=== PATIENT | female | born 1975 | race Caucasian/White ===

== ENCOUNTER 2016-05-06 20:20 | Emergency (ER) | payer BC ==
[~2016-05-06 20:20] MED LIST: CYMBALTA30 M1 PO; ENBREL50 MG/ML SQ; FENTANYL TR50 MCG/H1 TOP; FLEXERIL10 MG PO; LEVAQUIN750 MG PO; LYRICA50 M1 PO; METHOTREXATE2.5 M2 PO; OXYCONTIN20 MG PO; PREDNISONE1 MG PO; PREDNISONE20 MG PO; REMICADE100 MG IV
[2016-05-06 21:27] LABS: BASOPHIL % 0.5 % (0-2)
[2016-05-06 21:30] LABS: PLATELET COUNT 636 x10^3mcL (130-400); RED CELL DISTRIBUTION WIDTH 18.4 % (11.5-14.5)
[2016-05-06 21:32] LABS: CARBON DIOXIDE 26.4 mmol/L (21-32); CHLORIDE SERUM 102 mmol/L (98-107); CREATININE SERUM 0.9 mg/dL (0.6-1.0); GFR1 > 60 mL/min; GLUCOSE SERUM 118 mg/dL (74-106); POTASSIUM SERUM 3.7 mmol/L (3.5-5.1); SODIUM SERUM 140 mmol/L (136-145)
[2016-05-06 21:36] LABS: ALBUMIN 3.4 g/dL (3.4-5.0); ALKALINE PHOSPHATASE 77 U/L (46-116); ALT/SGPT 21 U/L (14-59); AST/SGOT 14 U/L (15-37); BILIRUBIN TOTAL 0.4 mg/dL (0.20-1.00); MAGNESIUM 1.9 mg/dL (1.8-2.4)
[2016-05-06 21:37] LABS: TOTAL PROTEIN, SERUM 8.8 g/dL (6.4-8.2)
[2016-05-07 01:02] VITALS: BP 104/67
== END 2016-05-07 01:02 | disposition home or self-care (01) ==
LOC: ED 20:20
PROVIDERS: Emergency Medicine
DX: R53.1 Weakness (principal); M54.9 Dorsalgia, unspecified; R07.9 Chest pain, unspecified; R05 Cough; M06.9 Rheumatoid arthritis, unspecified; Z87.442 Personal history of urinary calculi; Z88.2 Allergy status to sulfonamides; Z88.8 Allergy status to other drugs, medicaments and biological substances
CPT/HCPCS: 83880; J1200; J1630; J2060; Q0092

== ENCOUNTER 2017-09-08 01:57 | Inpatient (IN) | payer OTHER ==
[~2017-09-08] VITALS: Ht 170.2 cm; Wt 125.7 kg
[2017-09-08 02:23] VITALS: Ht 170.2 cm; Wt 125.7 kg
[2017-09-08 03:01] LABS: BASOPHIL % 1.7 % (0-2); CALCIUM 8.8 mg/dL (8.5-10.1); CARBON DIOXIDE 24.7 mmol/L (21-32); CHLORIDE SERUM 100 mmol/L (98-107); GFR1 > 60 mL/min; GLUCOSE SERUM 161 mg/dL (74-106); POTASSIUM SERUM 3.8 mmol/L (3.5-5.1); SODIUM SERUM 131 mmol/L (136-145)
[2017-09-08 03:04] LABS: RED CELL DISTRIBUTION WIDTH 17.4 % (11.5-14.5)
[2017-09-08 03:05] LABS: ALKALINE PHOSPHATASE 107 U/L (46-116); ALT/SGPT 43 U/L (14-59); AST/SGOT 44 U/L (15-37); BILIRUBIN TOTAL 0.72 mg/dL (0.20-1.00); LIPASE 103 IU/L (73-393); TOTAL PROTEIN, SERUM 7.6 g/dL (6.4-8.2)
[2017-09-08 03:14] LABS: ALBUMIN 2.9 g/dL (3.4-5.0)
[2017-09-08 03:38] LABS: PLATELET COUNT 612 x10^3mcL (130-400)
[2017-09-08] MEDS ORDERED: PREDNISONE2.5 MG PO (05:09)
[2017-09-08] MEDS ORDERED: LYRICA150 M1 PO (05:10)
[2017-09-08] MEDS ORDERED: CYMBALTA30 M1 PO (05:11)
[2017-09-08] MEDS ORDERED: HUMIRA10 MG/0.1 (05:12)
[2017-09-08] MEDS ORDERED: DILAUDID4 MG PO (05:13)
[2017-09-08 12:40] VITALS: BP 119/65
[2017-09-08 18:51] VITALS: BP 115/71
[2017-09-08 21:42] VITALS: BP 122/74
[2017-09-09 05:22] VITALS: BP 110/73
[2017-09-09 06:35] LABS: CALCIUM 7.3 mg/dL (8.5-10.1); CARBON DIOXIDE 23.8 mmol/L (21-32); CHLORIDE SERUM 103 mmol/L (98-107); CREATININE SERUM 0.7 mg/dL (0.6-1.0); GFR1 > 60 mL/min; GLUCOSE SERUM 115 mg/dL (74-106); POTASSIUM SERUM 3.9 mmol/L (3.5-5.1); SODIUM SERUM 137 mmol/L (136-145)
[2017-09-09 06:44] LABS: ALBUMIN 2.2 g/dL (3.4-5.0); ALKALINE PHOSPHATASE 85 U/L (46-116); ALT/SGPT 28 U/L (14-59); AST/SGOT 28 U/L (15-37); BASOPHIL % 0.2 % (0-2); BILIRUBIN TOTAL 0.4 mg/dL (0.20-1.00); CALCIUM 7.3 mg/dL (8.5-10.1); CARBON DIOXIDE 24.9 mmol/L (21-32); CHLORIDE SERUM 103 mmol/L (98-107); CREATININE SERUM 0.7 mg/dL (0.6-1.0); GFR1 > 60 mL/min; GLUCOSE SERUM 117 mg/dL (74-106); PLATELET COUNT 382 x10^3mcL (130-400); POTASSIUM SERUM 3.5 mmol/L (3.5-5.1); SODIUM SERUM 137 mmol/L (136-145); TOTAL PROTEIN, SERUM 6.4 g/dL (6.4-8.2)
[2017-09-09 06:53] LABS: RED CELL DISTRIBUTION WIDTH 19.2 % (11.5-14.5); rbc morphology (normal/abnorm) ABNORMAL (NORMAL)
[2017-09-09 09:29] VITALS: BP 131/68
[2017-09-09 14:05] VITALS: BP 111/72
[2017-09-09 17:46] VITALS: BP 111/62
[2017-09-09 20:58] VITALS: BP 110/49
[2017-09-10 05:09] VITALS: BP 126/80
[2017-09-10 09:23] VITALS: BP 115/75
[2017-09-10 13:15] VITALS: BP 115/70
[2017-09-10 18:01] VITALS: BP 127/71
[2017-09-10 21:07] VITALS: BP 133/83
[2017-09-11 05:27] VITALS: BP 122/69
[2017-09-11 08:00] VITALS: BP 145/82
[2017-09-11 11:23] VITALS: BP 145/82
== END 2017-09-11 12:44 | disposition home or self-care (01) | DRG 872 ==
LOC: ED 01:57 → DU 05:38
PROVIDERS: Emergency Medicine; Internal Medicine Pulmonary Disease
DX: A41.9 Sepsis, unspecified organism (principal); K57.92 Diverticulitis of intestine, part unspecified, without perforation or abscess without bleeding; Z68.41 Body mass index [BMI] 40.0-44.9, adult; K52.9 Noninfective gastroenteritis and colitis, unspecified; E86.0 Dehydration; M79.7 Fibromyalgia; Z88.2 Allergy status to sulfonamides; Z88.8 Allergy status to other drugs, medicaments and biological substances; M06.9 Rheumatoid arthritis, unspecified; Z90.49 Acquired absence of other specified parts of digestive tract; G89.4 Chronic pain syndrome; E66.9 Obesity, unspecified
CPT/HCPCS: J0696; J1170; J1956; J2270; J2405; J2543; J3490; J7030; J7040; J7512

== ENCOUNTER 2018-09-12 01:43 | Observation (INO) | payer OTHER ==
[~2018-09-12] VITALS: Ht 172.7 cm; Wt 121.2 kg
[~2018-09-12 01:43] MED LIST changes: +DILAUDID4 MG PO; +HUMIRA10 MG/0.1; +LYRICA150 M1 PO; +PREDNISONE2.5 MG PO
[2018-09-12 01:48] VITALS: Ht 172.7 cm; Wt 121.2 kg
--- NOTE | 2018-09-12 02:02 | NUR ---
PT PRESENTS TO ED WITH C/O BACK PAIN X2 DAYS. PT STATES THAT SHE BENT OVER TO PICK SOMETHING UP AND FELT A PULL IN HER MID BACK. PT STATES THAT THE PAIN HAS GOTTEN PROGRESSIVELY WORSE OVER THE PAST 2 DAYS AND IT IS RADIATING TO HER LOWER BACK AND AROUND TO HER LOWER ABDOMEN. PT STATES THAT SHE HAS BEEN TAKING MOTRIN, PREDNISONE, AND OXYCODONE FOR THE PAIN. PT STATES TO TAKING ORENCIA WELL. DR LOCKHART AT BEDSIDE FOR MSE. PT AOX4, RESP EVEN AND UNLABORED, NO ACUTE DISTRESS NOTED. PT FAMILY AT BEDSIDE.
--- NOTE | 2018-09-12 02:18 | NUR ---
PT FAMILY APPROACHED NURSING STATION STATING "IS IT OKAY IF I GRAB MY SISTER, BECAUSE MY MOM HAS TO USE THE BATHROOM". INSTRUCTED FAMILY THAT I WOULD ASSIST THE PT TO THE RESTROOM AND PT DAUGHTER STATES "SHE SAID SHE WOULD ONLY BE COMFORTABLE IF MY SISTER HELPED HER". INSTRUCTED DAUGHTER THAT WE WOULD ALLOW MORE THAN ONE FAMILY MEMBER AT THIS TIME TO ASSIST PT TO USE RESTROOM THEN ONE VISITOR WOULD HAVE TO LEAVE. FAMILY VERBALIZED UNDERSTANDING. PT ASSISTED FROM GURNEY ONTO WHEELCHAIR WITH NO INCIDENCES NOTED. PT DAUGHTER STATES "HERE WE GOT IT". CONTINUED TO OFFER ASSISTANCE AND FAMILY AND PT REFUSED AT THIS TIME. . ACCOMPANIED FAMILY AND PT TO RESTROOM DOOR. WILL CONTINUE TO MONITOR.
--- NOTE | 2018-09-12 02:27 | NUR ---
ACCOMPANIED PT BACK TO ROOM VIA WHEELCHAIR FROM RESTROOM. PT ASSISTED BACK ONTO BED WITH NO INCIDENCES NOTED. FAMILY AT BEDSIDE. PT TOLERATED WELL.
[2018-09-12 02:29] LABS: CALCIUM 9.3 mg/dL (8.5-10.1); CARBON DIOXIDE 26.3 mmol/L (21-32); CHLORIDE SERUM 105 mmol/L (98-107); CREATININE SERUM 0.9 mg/dL (0.6-1.0); GFR1 > 60 mL/min; GLUCOSE SERUM 184 mg/dL (74-106); POTASSIUM SERUM 4.1 mmol/L (3.5-5.1); SODIUM SERUM 141 mmol/L (136-145)
[2018-09-12 02:34] LABS: ALKALINE PHOSPHATASE 72 U/L (46-116); ALT/SGPT 44 U/L (14-59); AST/SGOT 21 U/L (15-37); BILIRUBIN TOTAL 0.2 mg/dL (0.20-1.00); LIPASE 179 IU/L (73-393); TOTAL PROTEIN, SERUM 7.7 g/dL (6.4-8.2)
--- NOTE | 2018-09-12 02:45 | NUR ---
PT OFF FLOOR FOR CT.
[2018-09-12 02:55] LABS: RED CELL DISTRIBUTION WIDTH 19.2 % (11.5-14.5)
[2018-09-12 02:58] LABS: PLATELET COUNT 534 x10^3mcL (130-400)
--- NOTE | 2018-09-12 03:11 | NUR ---
PT MEDICATED PER EMAR, PT STILL COMPLAINING OF BEING "UNCOMFORTABLE". PT DAUGHTER AT BEDSIDE, ON FULL CM. AOX4, RESP EVEN AND UNLABORED, NO ACUTE DISTRESS NOTED.
[2018-09-12 03:13] LABS: microscopic required? NO
[2018-09-12 03:26] LABS: urine erythrocyte NEGATIVE (NEGATIVE)
--- NOTE | 2018-09-12 03:46 | NUR ---
PT CALLED NURSING STATION ASKING FOR NURSE. UPON ENTERING THE ROOM PT DAUGHTER STATES "TELL HER" PT RESPONDED WITH "TELL WHO WHAT". PT DAUGHTER STATES "YOURE THE ONE WHO CALLED HER, SHE SAID THE MEDICINE ISNT HELPING AND SHES STILL IN PAIN". DR LOCKHART AND MARYJANE NUNES MADE AWARE.
--- NOTE | 2018-09-12 04:25 | NUR ---
PT REFUSED NASAL KETAMINE, DR LOCKHART AWARE. PT REQUESTING OXYCODONE AT THIS TIME. DR LOCKHART AWARE.
[2018-09-12] MEDS ORDERED: OXYCODONE HYDRO30 MG PO (04:28)
--- NOTE | 2018-09-12 05:06 | NUR ---
PT REQUESTING SPRITE. PER DR LOCKHART OK FOR PT TO DRINK AT THIS TIME.
--- NOTE | 2018-09-12 05:24 | NUR ---
ATTEMPTED TO CALL PT REPORT, LIZZ NUNES UNABLE TO ACCEPT REPORT AT THIS TIME.
--- NOTE | 2018-09-12 05:36 | NUR ---
ATTEMPTED TO CALL PT REPORT AGAIN, LIZZ NUNES UNABLE TO ACCEPT REPORT AT THIS TIME.
--- NOTE | 2018-09-12 05:42 | NUR ---
PT STATES THAT PAIN IS UNRELIEVED BY MEDICATIONS ADMINISTERED IN ED. DR LOCKHART AWARE.
--- NOTE | 2018-09-12 05:57 | NUR ---
PT REPORT CALLED TO LIZZ NUNES TO ASSUME PT CARE.
--- NOTE | 2018-09-12 06:07 | NUR ---
PT TRANSFERRED TO [facility] BY [facility] BY TIM RAE AND ALLAN RN. PT ON FULL CM FOR TRANSPORT. PT AOX4, RESP EVEN AND UNLABORED, NO ACUTE DISTRESS NOTED. PT DAUGHTER AT BEDSIDE. PT ACCEPTED BY LIZZ NUNES TO ASSUME PT CARE.
[2018-09-12 06:15] VITALS: BP 144/87
--- NOTE | 2018-09-12 06:15 | NUR ---
RECEIVED PT FROM ED VIA [facility] ACCOMPANIED BY EMT AND NURSE. BT ABLE TO AMBULATE FROM GUERNEY TO BED WITHOUT INCIDENT. PT APPEARS DROWSY, AROUSABLE TO VERBAL STIMULI, AA/OX4, ABLE TO MAKE NEEDS KNOWN. MED-SURG, NO TELE, DENIES CP. PT C/O LOWER BACK PAIN THAT RADIATES BOTH WAYS TOWARDS ABD, STATES PAIN IS 6/10 AT THIS TIME. PT STATES PAIN MEDICATION GIVEN IN ER HELPED MINIMIALLY WITH HER PAIN. PT'S DAUGHTER AT BEDSIDE, JONG ESCAMILLA. NO ACUTE DISTRESS OBSERVED. PT BREATHING EVEN AND UNLABORED. VITAL SIGNS STABLE. ORIENTED PT TO ROOM AND CALL LIGHT. WILL CONTINUE TO MONITOR AND ENDORSE CARE TO DAY SHIFT NURSE
--- NOTE | 2018-09-12 06:45 | NUR ---
PT C/O 07/30 LOWER BACK PAIN RADIATING TO LOWER ABD AND REQUESTING PAIN MEDICATION AT THIS TIME. MEDICATED WITH PRN NORCO PO PER EMAR
--- NOTE | 2018-09-12 07:45 | NUR ---
PATIENT RECEIVED ALERT AND ORIENTED TIMES FOUR. PATEINT HAS BEEN WITH PAIN TO THE ABDOMEN AND BACK. PATIENT WITH HISTORY OF FIBROMYALGA, RA AND HAS HAD A YAMILETH. 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 SHE HAS DISTENDED ABDOMEN BUT SOFT AND IS GROSSLY OBESE AT 267.2LB AT 5'8". PATIENT HAS ALLERGIES TO IBUPROFEN AND SULFA. SHE STATES SHE TAKE OXYCODONE AT HOME. GISSELLE GAONAS BEEN HAVING PAIN TO [facility] BACK FOR TWO DAYS NOW. SHE HAS ALSO NOTED TOOTH LOSS AND A UMBILICAL HERNIA. SHE HAS A SMALL SCRAP TO THE OUTER LEFT FOOT. IV TO THE LE4FT FOREARM NOTED AND ON IV FLUIDS INDICATED. PATIENT AHS BEEN NOED TO USE TO SMOKE AND DENIE SANY ALCOHOL OR DRUG USE. SHE LIVES WITH HER AND EDUCATED TO 12TH GRADE. PATIENT HAD A BM YESTERDAY AND DENIES NAUSEA AT THIS TIME. SHE ASKED FOR PAIN MEDICATION AND HAD RECEIVE DNORCO EARLIER BUT WAS NOT EFFECTIVE. GAVE DILAUDID PO AND WILL CONTINUE TO MONITOR.
[2018-09-12 08:02] VITALS: BP 144/87
[2018-09-12 09:27] VITALS: BP 125/70
--- NOTE | 2018-09-12 10:16 | NUR ---
SEEN BY DR ALICEA AND ORDERS FOR DISCHARGE NOTED. PATIENT FOR PHYSICAL THERAPY TO BE ARRANGED FOR OUTPATIENT AN DDUE TO MUSCULAR SPASMS TO THE BACK.
[2018-09-12 10:24] VITALS: BP 125/70
--- NOTE | 2018-09-12 13:47 | NUR ---
CALLED THE DR ABOUT THE RECENT LACTIC ACID LEVEL AND IT WAS 3.4. HE STATE SIT SHOULD NOT HAVE BEEN DRAWN THE PREVIOUS WAS AT 2.0. HE STATES SHE IS TO BE DISCHARGED HOME TODAY. THE LAB RAN ANOTHER LACTIC PER PROTOCAL AND AWAITING RSULTS OF THIS LAB.
--- NOTE | 2018-09-12 13:53 | NUR ---
GAVE NORCO FOR COMPLAINTS OF MIGRAINE PAIN. WILL MONITOR FOR EFFECTIVENESS.
--- NOTE | 2018-09-12 14:53 | NUR ---
CALLED WITH THE RESULTS OF THE LACTIC AND PATENT HE STATES IS NOT SEPTIC AND THAT SHE DOES NOT MEET THE CRITERIA FOR THIS. HE WANTS HER DICHARGED TO HOME. PAPERWORK COMPLETED AND WILL REMOVE THE IV AND DISCHARGE ORDERED WITH THE MEDICATION PRESCRIPTION SUPPLIED. .
--- NOTE | 2018-09-12 15:09 | NUR ---
GAVE ALL PAPERWORK AND PATIENT HAS SOEM TEARFULNESS SHE WANTS MORE PAIN MEDICATION AND A PRESCRIPTION FOR THIS. DR WROTE FOR ONLY A MUSCLE RELAXER AND STAFF RECOMENDED TO FOLLOW UP WITH THE PRIMARY ABOUT GETTING PAIN MEDICATION. PATIENT STATES THE DR IS ON VACATION. DR FLORES IS THE PRIMARY WHO WAS SEEN THIS AM HERE. ADVISED TO CALL AND SEE IF SHE CAN GET A TEMPORARY DOSING TO HOLD HER TILL THE DR IS BACK FROM "VACATION." DR ALICEA WILL NOT FILL THE PRESCRITION IT IS HER PRIMARY DOCTOR WHO WILL NEED TO DO SO.
== END 2018-09-12 15:26 | disposition home or self-care (01) | DRG 552 ==
LOC: ED 01:43 → MU 05:05 → DU 05:05 → EDBEDREQ 05:11 → EDBEDREQTM 05:11 → MU 06:10
PROVIDERS: Emergency Medicine; ADMIT Internal Medicine Pulmonary Disease
DX: M62.830 Muscle spasm of back (principal); Z68.41 Body mass index [BMI] 40.0-44.9, adult; M06.9 Rheumatoid arthritis, unspecified; E66.01 Morbid (severe) obesity due to excess calories
CPT/HCPCS: G0378; J1644; J2405; J2543; J2800; J2930; J3490; J7030

== ENCOUNTER 2018-10-16 01:21 | Emergency (ER) | payer OTHER ==
[~2018-10-16] VITALS: Ht 167.6 cm; Wt 118.4 kg
[~2018-10-16 01:21] MED LIST changes: +OXYCODONE HYDRO30 MG PO
[2018-10-16 01:29] VITALS: Ht 167.6 cm; Wt 118.4 kg
[2018-10-16 03:42] VITALS: BP 122/84
== END 2018-10-16 03:42 | disposition home or self-care (01) ==
LOC: ED 01:21
DX: Z76.0 Encounter for issue of repeat prescription (principal); M06.9 Rheumatoid arthritis, unspecified; Z88.2 Allergy status to sulfonamides; Z88.6 Allergy status to analgesic agent; Z90.49 Acquired absence of other specified parts of digestive tract; M79.7 Fibromyalgia

== ENCOUNTER 2019-05-23 00:40 | Emergency (ER) | payer OTHER ==
[~2019-05-23] VITALS: Ht 170.2 cm; Wt 121.6 kg
[2019-05-23 00:46] VITALS: Ht 170.2 cm; Wt 121.6 kg
[2019-05-23 01:42] VITALS: BP 154/88
== END 2019-05-23 01:35 | disposition home or self-care (01) ==
LOC: ED 00:40
DX: M25.512 Pain in left shoulder (principal); M79.7 Fibromyalgia; Z88.2 Allergy status to sulfonamides; Z88.6 Allergy status to analgesic agent; Z90.49 Acquired absence of other specified parts of digestive tract
CPT/HCPCS: J2270

== ENCOUNTER 2019-05-24 04:41 | Emergency (ER) | payer OTHER ==
[~2019-05-24] VITALS: Ht 152.4 cm; Wt 136.1 kg
[2019-05-24 04:52] VITALS: Ht 152.4 cm; Wt 136.1 kg
[2019-05-24 05:13] LABS: BASOPHIL % 1.3 % (0-2)
[2019-05-24 05:14] LABS: PLATELET COUNT 417 x10^3mcL (130-400); RED CELL DISTRIBUTION WIDTH 19.2 % (11.5-14.5)
[2019-05-24 05:22] LABS: CALCIUM 8.3 mg/dL (8.5-10.1); CARBON DIOXIDE 27.5 mmol/L (21-32); CREATININE SERUM 1.2 mg/dL (0.6-1.0); POTASSIUM SERUM 4.3 mmol/L (3.5-5.1)
[2019-05-24 05:28] LABS: BILIRUBIN TOTAL 0.4 mg/dL (0.20-1.00); TOTAL PROTEIN, SERUM 7.3 g/dL (6.4-8.2)
[2019-05-24 09:46] VITALS: BP 121/73
== END 2019-05-24 09:46 | disposition short-term general hospital (02) ==
LOC: ED 04:41
PROVIDERS: Emergency Medicine
DX: I62.9 Nontraumatic intracranial hemorrhage, unspecified (principal); R79.89 Other specified abnormal findings of blood chemistry; M79.7 Fibromyalgia; M06.9 Rheumatoid arthritis, unspecified; Z90.49 Acquired absence of other specified parts of digestive tract; Z88.2 Allergy status to sulfonamides; Z88.6 Allergy status to analgesic agent
CPT/HCPCS: 36415; J7030; Q0092; Q9967

== ENCOUNTER 2020-03-19 15:14 | Emergency (ER) | payer OTHER ==
[~2020-03-19] VITALS: Ht 170.2 cm; Wt 125.2 kg
[2020-03-19 15:24] VITALS: Ht 170.2 cm; Wt 125.2 kg
[2020-03-19 16:37] LABS: BASOPHIL % 0.9 % (0.2-1.3)
[2020-03-19 16:38] LABS: PLATELET COUNT 359 x10^3mcL (179-408); RED CELL DISTRIBUTION WIDTH 20.3 % (12.3-17.7)
[2020-03-19 18:03] LABS: ovalocyte/elliptocyte 2+; rbc morphology (normal/abnorm) ABNORMAL (NORMAL)
[2020-03-19 18:13] LABS: CALCIUM 9.3 mg/dL (8.5-10.1); CARBON DIOXIDE 21.9 mmol/L (21-32); CHLORIDE SERUM 99 mmol/L (98-107); CREATININE SERUM 0.8 mg/dL (0.6-1.0); GFR1 > 60 mL/min; GLUCOSE SERUM 168 mg/dL (74-106); POTASSIUM SERUM 3.6 mmol/L (3.5-5.1); SODIUM SERUM 138 mmol/L (136-145)
[2020-03-19 18:17] LABS: ALKALINE PHOSPHATASE 75 U/L (46-116); ALT/SGPT 51 U/L (14-59); AST/SGOT 27 U/L (15-37); BILIRUBIN TOTAL 0.49 mg/dL (0.20-1.00); CHOLESTEROL 184 mg/dL (<200); HDL CHOLESTEROL 47 mg/dL (40-60); MAGNESIUM 1.9 mg/dL (1.8-2.4)
[2020-03-19 18:43] LABS: ALBUMIN 3.3 g/dL (3.4-5.0)
[2020-03-19] MEDS ORDERED: GLUCOPHAGE500 MG PO (20:13)
[2020-03-19] MEDS ORDERED: PLAVIX75 M1 PO (20:13)
[2020-03-19] MEDS ORDERED: NITROGLYCERIN0.4 MG (20:14)
[2020-03-19] MEDS ORDERED: LOSARTAN POTASS1 TA8 PO (20:14)
[2020-03-19] MEDS ORDERED: NITROGLYCERIN0.4 MG SL (20:14)
[2020-03-19] MEDS ORDERED: METOPROLOL ER-1 EACH PO (20:15)
[2020-03-19] MEDS ORDERED: ISOSORBIDE DINI40 MG (20:15)
[2020-03-19 20:19] LABS: microscopic required? NO
[2020-03-19 20:28] LABS: urine erythrocyte NEGATIVE (NEGATIVE)
[2020-03-20 01:32] VITALS: BP 144/68
== END 2020-03-20 01:32 | disposition short-term general hospital (02) ==
LOC: ED 15:14
PROVIDERS: Emergency Medicine
DX: I69.314 Frontal lobe and executive function deficit following cerebral infarction (principal); Z88.2 Allergy status to sulfonamides; Z88.6 Allergy status to analgesic agent; Z90.49 Acquired absence of other specified parts of digestive tract; Z87.442 Personal history of urinary calculi
CPT/HCPCS: J2001; J2270; J2405